=== PATIENT | female | born 1985 | race Caucasian/White ===

== ENCOUNTER → 2016-12-27 | Outpatient (CLI) | payer BC, OTHER | LOC: RAD 17:42 | PROVIDERS: ATTEND Family Medicine | DX: E04.1 Nontoxic single thyroid nodule (principal) | CPT/HCPCS: 76536 ==

== ENCOUNTER → 2017-02-06 | Outpatient (CLI) | payer BC ==
[2017-02-07 07:18] LABS: THYROGLOBULIN AB <1.0 IU/mL (0.0-0.9); THYROID PEROXIDASE (TPO) AB 11 IU/mL (0-34)
== END ==
LOC: OD 08:14
PROVIDERS: ATTEND Physician Assistant Surgical
DX: E04.2 Nontoxic multinodular goiter (principal)
CPT/HCPCS: 36415; 86376; 86800

== ENCOUNTER 2017-06-26 17:26 | Emergency (ER) | payer SELFPAY ==
[2017-06-26 17:48] VITALS: BP 121/82
--- NOTE | 2017-06-26 18:55 | ER Document Report ---
HPI - HPI Patient complains to provider of: Sore throat Onset: Yesterday Onset/Duration: Gradual Quality of pain: Achy Severity: Moderate Pain Level: 4 Context: Patient complains of sore throat since yesterday. States she has a history of tonsillitis. No known fever, but has felt achy and had chills. Denies nasal congestion or cough. Associated Symptoms: Chills, Sore throat Exacerbated by: Denies Relieved by: Denies Similar symptoms previously: Yes Recently seen / treated by doctor: No - ROS ROS below otherwise negative: Yes Systems Reviewed and Negative: Yes All other systems reviewed and negative - CONSTITUTIONAL Constitutional: REPORTS: Chills - EENT EENT: REPORTS: Sore Throat. DENIES: Congestion - NEURO Neurology: DENIES: Headache - CARDIOVASCULAR Cardiovascular: DENIES: Chest pain - RESPIRATORY Respiratory: DENIES: Trouble Breathing - GASTROINTESTINAL Gastrointestinal: DENIES: Abdominal Pain - REPRODUCTIVE Reproductive: DENIES: : - MUSCULOSKELETAL Musculoskeletal: DENIES: Extremity pain - DERM Skin Color: Normal Skin Problems: None Past Medical History - General Information source: Patient - Social History Smoking Status: Current Every Day Smoker Chew tobacco use (# tins/day): No Frequency of alcohol use: None Drug Abuse: None Lives with: Family Family History: Reviewed & Not Pertinent Psychiatric Medical History: Reports: Hx Anxiety Past Surgical History: Reports: Hx Oral Surgery - Immunizations Hx Diphtheria, Pertussis, Tetanus Vaccination: Yes Vertical Provider Document - CONSTITUTIONAL Agree With Documented VS: Yes Exam Limitations: No Limitations General Appearance: WD/WN, No Apparent Distress - INFECTION CONTROL TRAVEL OUTSIDE OF THE [place] IN LAST 30 DAYS: No - HEENT HEENT: Atraumatic, Normocephalic, Pharyngeal Erythema - NECK Neck: Lymphadenopathy-Left, Lymphadenopathy-Right - RESPIRATORY Respiratory: Breath Sounds Normal, No Respiratory Distress O2 Sat by Pulse Oximetry: 100 - CARDIOVASCULAR Cardiovascular: Regular Rate, Regular Rhythm - GI/ABDOMEN Gastrointestinal: Abdomen Soft - MUSCULOSKELETAL/EXTREMETIES Musculoskeletal/Extremeties: MAEW - NEURO Level of Consciousness: Awake, Alert, Appropriate - DERM Integumentary: Warm, Dry, No Rash Course - Vital Signs Vital signs: Temp Pulse Resp BP Pulse Ox 98.7 F 83 16 121/82 100 06/26/17 17:47 06/26/17 17:47 06/26/17 17:47 06/26/17 17:47 06/26/17 17:47 Discharge - Discharge Clinical Impression: Tonsillitis Condition: Good Disposition: HOME, SELF-CARE Additional Instructions: Finish all antibiotics as prescribed Tylenol or Motrin as needed for sore throat and/or fever Salt water gargles or throat lozenges Push fluids Follow-up with primary care physician if not better in 3-4 days, earlier if worsens Return as needed Prescriptions: Penicillin V Potassium [Penicillin Vk 500 mg Tablet] 500 mg PO BID #20 tablet Forms: Return to Work
== END 2017-06-26 19:05 | disposition home or self-care (01) ==
LOC: ER 17:26
DX: J03.90 Acute tonsillitis, unspecified (principal); F17.200 Nicotine dependence, unspecified, uncomplicated
CPT/HCPCS: 99282

== ENCOUNTER → 2018-10-07 | Outpatient (CLI) | payer OTHER ==
--- NOTE | 2018-10-07 11:39 | RADIOLOGY REPORT (SQ) ---
EXAM DESCRIPTION: U/S THYROID/SFT TISS HD NECK COMPLETED DATE/TIME: 10/07/2018 11:17 am REASON FOR STUDY: THYROID NODULE E04.1 NONTOXIC SINGLE THYROID NODULE COMPARISON: 12/27/2016 TECHNIQUE: Dynamic and static fonseca-scale images acquired of the thyroid gland. Selected additional c olor/power Doppler images recorded. All images stored to PACS. LIMITATIONS: None. FINDINGS: RIGHT LOBE: The right lobe of the thyroid gland measures 5 x 1.5 x 1.8 cm, normal size. Homogeneous echotexture. Two well-defined solid hypoechoic nodules are identified. The larger nodul e in the superior pole represents a new finding and measures 0.7 x 0.7 x 0.5 cm. The second smaller nodule in the lower pole is stable in appearance and measures 0.5 x 0.4 x 0.3 cm. LEFT LOBE: The left lobe of the thyroid gland measures 5.0 x 2.1 x 1.5 cm, normal size. Homogeneous echotexture. A hypoechoic solid nodule in the upper pole measures 0.6 x 0.6 x 0.5 cm. On the prior examination, it measured 0.5 x 0.4 x 0.3 cm. There has been a minimal increase in size since the sameer or study. ISTHMUS: The isthmus measures 8.7 mm, prominent in size. Homogeneous echotexture. Homogeneous echot exture. No cystic or solid masses. OTHER: No other significant finding. IMPRESSION: 1. Small hypoechoic nodules within both lobes of the thyroid gland as above. The large r nodule in the right lobe represents a new finding since the prior study dated 12/27/2016. TECHNICAL DOCUMENTATION: JOB ID: [id number] [employer]- All Rights Reserved Reading location - IP/workstation name: [email or web address]
== END ==
LOC: RAD 10:41
PROVIDERS: ATTEND Physician Assistant
DX: E04.1 Nontoxic single thyroid nodule (principal)
CPT/HCPCS: 76536

== ENCOUNTER → 2018-11-18 | Outpatient (CLI) | payer OTHER ==
[2018-11-19 08:40] LABS: THYROID PEROXIDASE (TPO) AB 9 IU/mL (0-34)
[2018-11-19 11:06] LABS: THYROGLOBULIN AB SO <1.0 IU/mL (0.0-0.9)
== END ==
LOC: LAB 12:04
PROVIDERS: ATTEND Surgery
DX: E04.2 Nontoxic multinodular goiter (principal)
CPT/HCPCS: 36415; 84443; 86376

== ENCOUNTER 2019-11-26 09:24 | Emergency (ER) | payer OTHER ==
--- NOTE | 2019-11-26 09:41 | ER Document Report ---
ED Medical Screen (RME) - General Chief Complaint: Shortness Of Breath Stated Complaint: SHORT OF BREATH Time Seen by Provider: 11/26/19 09:31 Primary Care Provider: ZAYRA GILLILAND MD [Primary Care Provider] - Follow up as needed Mode of Arrival: Ambulatory Information source: Patient Notes: 34-year-old female presents emergency department with complaints of chest p ressure since yesterday. Feels like she cannot get a deep breath. Denies chest pain. Denies fever cough vomiting diarrhea. Patient does have a history of thyroid cyst which she receives evaluation by ultrasound by Dr. Aguero but she is not taking any medications. Patient recently quit smoking 1 month ago. Denies history of cardiac disease. Respiratory rate even unlabored no retractions. I have greeted and performed a rapid initial assessment of this patient. A comprehensive ED assessment and evaluation of the patient, analysis of test results and completion of the medical decision making process will be conducted by additional ED providers. TRAVEL OUTSIDE OF THE [place] IN LAST 30 DAYS: No - Related Data Allergies/Adverse Reactions: No Known Allergies Allergy (Verified 11/26/19 09:26) Past Medical History Renal/ Medical History: Denies: Hx Peritoneal Dialysis Psychiatric Medical History: Reports: Hx Anxiety Past Surgical History: Reports: Hx Oral Surgery - Immunizations Hx Diphtheria, Pertussis, Tetanus Vaccination: Yes Doctor's Discharge - Discharge Referrals: ZAYRA GILLILAND MD [Primary Care Provider] - Follow up as needed
--- NOTE | 2019-11-26 10:07 | RADIOLOGY REPORT (SQ) ---
EXAM DESCRIPTION: CHEST 2 VIEWS COMPLETED DATE/TIME: 11/26/2019 9:54 am REASON FOR STUDY: chest pressure COMPARISON: 05/09/2016 EXAM PARAMETERS: NUMBER OF VIEWS: two views TECHNIQUE: Digital Frontal and Lateral radiographic views of the chest acquired. RADIATION DOSE: NA LIMITATIONS: none FINDINGS: LUNGS AND PLEURA: No opacities, masses or pneumothorax. No pleural effusion. MEDIASTINUM AND HILAR STRUCTURES: No masses or contour abnormalities. HEART AND VASCULAR STRUCTURES: Heart normal size. No evidence for failure. BONES: No acute findings. HARDWARE: None in the chest. OTHER: No other significant finding. IMPRESSION: NO ACUTE RADIOGRAPHIC FINDING IN THE CHEST. TECHNICAL DOCUMENTATION: JOB ID: [id number] 2010 [employer]- All Rights Reserved Reading location - IP/workstation name: [email or web address]
[2019-11-26 10:09] LABS: ABSOLUTE EOSINOPHILS # (AUTO) 0.1 10^3/uL (0.0-0.6); ABSOLUTE LYMPHOCYTES (AUTO) 2.3 10^3/uL (0.5-4.7); ABSOLUTE MONOCYTES (AUTO) 0.6 10^3/uL (0.1-1.4); ABSOLUTE NEUT (AUTO) 3.8 10^3/uL (1.7-8.2); BASOPHILS % (AUTO) 0.7 % (0-2); HEMATOCRIT 38.3 % (36.0-47.0); HEMOGLOBIN 13.4 g/dL (12.0-15.5); LYMPHOCYTES % (AUTO) 33.7 % (13-45); MEAN CORPUSCULAR HEMOGLOBIN 29.8 pg (27.0-33.4); MEAN CORPUSCULAR HGB CONC 34.9 g/dL (32.0-36.0); MEAN CORPUSCULAR VOLUME 86 fl (80-97); PLATELET COUNT 321 10^3/uL (150-450); RED BLOOD COUNT 4.48 10^6/uL (3.72-5.28); RED CELL DISTRIBUTION WIDTH 13.1 % (11.5-14.0); SEGMENTED NEUTROPHILS % (AUTO) 55.6 % (42-78); TOTAL CELLS COUNTED % (AUTO) 100 %; WHITE BLOOD COUNT 6.9 10^3/uL (4.0-10.5)
[2019-11-26 10:34] LABS: ALBUMIN 4.4 g/dL (3.5-5.0); ALKALINE PHOSPHATASE 44 U/L (38-126); ANION GAP 7 (5-19); ASPARTATE AMINO TRANSFERASE 29 U/L (14-36); BILIRUBIN,TOTAL 0.4 mg/dL (0.2-1.3); BLOOD UREA NITROGEN 11 mg/dL (7-20); CALCIUM 9.4 mg/dL (8.4-10.2); CARBON DIOXIDE 27 mmol/L (22-30); CHLORIDE 105 mmol/L (98-107); GLUCOSE 92 mg/dL (75-110); POTASSIUM 4.3 mmol/L (3.6-5.0); TOTAL PROTEIN 7.2 g/dL (6.3-8.2)
--- NOTE | 2019-11-26 10:59 | ER Document Report ---
ED General - General Chief Complaint: Chest Tightness Stated Complaint: SHORT OF BREATH Time Seen by Provider: 11/26/19 09:31 Primary Care Provider: ZAYRA GILLILAND MD [Primary Care Provider] - Follow up as needed Mode of Arrival: Ambulatory TRAVEL OUTSIDE OF THE [place] IN LAST 30 DAYS: No - HPI Notes: Patient is a 34-year-old female presents emergency department for evaluation. Yesterday she started having stabbing pains in her left episcopal area interm ittently. Following that she felt like she was having trouble taking a deep breath. She states her chest felt somewhat tight. The symptoms were intermittent and throughout the day. They happened again today, so she presents to the ER for further evaluation. She is had no fevers or chills. No sore throat. No nausea or vomiting. Normal urination, normal bowel movements. She denies any difficulty seeing, speaking, swallowing. She currently states that her breathing issue has improved remarkably, did so shortly after her arrival. - Related Data Allergies/Adverse Reactions: No Known Allergies Allergy (Verified 11/26/19 09:26) Home Medications: OCPs Past Medical History - General Information source: Patient - Social History Smoking Status: Former Smoker Chew tobacco use (# tins/day): No Frequency of alcohol use: None Drug Abuse: None Family History: Reviewed & Not Pertinent Patient has suicidal ideation: No Patient has homicidal ideation: No Renal/ Medical History: Denies: Hx Peritoneal Dialysis Psychiatric Medical History: Reports: Hx Anxiety Past Surgical History: Reports: Hx Oral Surgery - Immunizations Hx Diphtheria, Pertussis, Tetanus Vaccination: Yes Review of Systems - Review of Systems Cardiovascular: See HPI Neurological/Psychological: See HPI -: Yes All other systems reviewed and negative Physical Exam - Vital signs Vitals: Temp Pulse Resp BP Pulse Ox 98.6 F 67 16 123/79 100 11/26/19 09:30 11/26/19 09:30 11/26/19 09:30 11/26/19 09:30 11/26/19 09:30 - Notes Notes: Vital signs reviewed, please refer to chart. Head is normocephalic, atraumatic. Pupils equal round, reactive to light. Neck is supple without meningismus. Heart is regular rate and rhythm. Lungs are clear to auscultation bilaterally. Abdomen is soft, nontender, normoactive bowel sounds throughout. Extremities without cyanosis, clubbing. Posterior calves are nontender. Peripheral pulses are equal. Skin is warm and dry. Patient is awake, alert, oriented x3. Cranial nerves II - XII are grossly intact without focal neurological deficits. Strength is plus 5 out of 5 bilateral upper and lower extremities. Sensation is intact. Reflexes symmetrical. Intact [id number], rapid alternating movements, [id number]. Course - Re-evaluation Re-evalutation: 11/26/19 10:58 Patient presents to the emergency department for evaluation. Laboratory investigations were ordered as through triage. Patient has complaints that seem most consistent with anxiety. We discussed this. She states she did have some anxiety issues in the past, but had not in some time. She denies any precipitating events. Awaiting the remainder of her lab work. Otherwise, the patient is stable. She has no risk factors for PE. Her heart rate is in the 60s. We will continue to monitor. 11/26/19 11:33 Laboratory investigations are entirely unremarkable. I strongly suspect anxiety is the etiology of this patient's symptoms. I encouraged her to follow-up with Dr. Gilliland to discuss this further. Otherwise she is vitally stable, lab work is unremarkable, and she is discharged with instructions to return with worsening. - Vital Signs Vital signs: Temp Pulse Resp BP Pulse Ox 98.6 F 67 16 123/79 100 11/26/19 09:30 11/26/19 09:30 11/26/19 09:30 11/26/19 09:30 11/26/19 09:30 - Laboratory Result Diagrams: 11/26/19 09:49 11/26/19 09:49 - Diagnostic Test Radiology reviewed: Reports reviewed Radiology results interpreted by me: 11/26/19 10:59 Chest X-Ray 11/26/19 09:38 IMPRESSION: NO ACUTE RADIOGRAPHIC FINDING IN THE CHEST. - EKG Interpretation by Me Additional EKG results interpreted by me: 11/26/19 10:59 Sinus mechanism with a rate of 64 bpm. Normal axis and intervals. No acute ST changes concerning for ischemia or infarction. Discharge - Discharge Clinical Impression: Feeling of chest tightness, Anxiety Condition: Stable Disposition: HOME, SELF-CARE Instructions: Anxiety ([facility]), Chest Pain of Unclear Cause ([facility]) Additional Instructions: Your lab work, thyroid studies, EKG, chest x-ray were all unremarkable for any acute findings today. Please follow-up with Dr. Gilliland this week. Return to the emergency department with worsening or new concerning symptoms of any sort. Referrals: ZAYRA GILLILAND MD [Primary Care Provider] - Follow up as needed
[2019-11-26 11:53] VITALS: BP 127/90
--- NOTE | 2019-11-26 17:23 | EKG REPORT ---
SEVERITY:- NORMAL ECG - SINUS RHYTHM : Confirmed by: Franklin Conner 26-Nov-2019 17:22:47
== END 2019-11-26 11:53 | disposition home or self-care (01) ==
LOC: ER 09:24
DX: R07.9 Chest pain, unspecified (principal); F41.9 Anxiety disorder, unspecified; R06.02 Shortness of breath
CPT/HCPCS: 36415; 71046; 80053; 84443; 84703; 85025; 93005; 93010; 99285

== ENCOUNTER 2020-01-07 16:46 | Emergency (ER) | payer OTHER ==
[2020-01-07] MEDS ORDERED: ONDANSETRON HCL INJ/PF 4 MG/2 ML SDV IV ONE (17:13)
[2020-01-07] MEDS ORDERED: NORMAL SALINE 1000 ML 1,000 ML IV ONE (17:13)
[2020-01-07] MEDS ORDERED: KETOROLAC TROMETHAMINE INJ/PF 30 MG/1 ML SDV IV ONE (17:13)
--- NOTE | 2020-01-07 17:15 | ER Document Report ---
ED Medical Screen (RME) - General Chief Complaint: Epigastric Pain Stated Complaint: ABDOMINAL PAIN Time Seen by Provider: 01/07/20 17:10 Primary Care Provider: ZAYRA GILLILAND MD [Primary Care Provider] - Follow up as needed Mode of Arrival: Ambulatory Information source: Patient Notes: 34-year-old female presented to ED for complaint of right upper quadrant abdomin al pain since Sunday. She states she is has a little nausea whenever the pain is really bad. She states she does have a past medical history of anxiety a fractured finger and a split tongue. She states her split tongue was sewn when she was 3 years old. Patient is alert oriented respirations regular nonlabored speaking in full sentences. She states she does not smoke drink or use any illicit drugs. I have greeted and performed a rapid initial assessment of this patient. A comprehensive ED assessment and evaluation of the patient, analysis of test results and completion of medical decision making process will be conducted by an additional ED providers. TRAVEL OUTSIDE OF THE [place] IN LAST 30 DAYS: No - Related Data Allergies/Adverse Reactions: No Known Allergies Allergy (Verified 11/26/19 09:26) Home Medications: denies Past Medical History - Social History Chew tobacco use (# tins/day): No Frequency of alcohol use: None Drug Abuse: None Renal/ Medical History: Denies: Hx Peritoneal Dialysis Psychiatric Medical History: Reports: Hx Anxiety Past Surgical History: Reports: Hx Oral Surgery - Immunizations Hx Diphtheria, Pertussis, Tetanus Vaccination: Yes Physical Exam - Vital signs Vitals: Temp Pulse Resp BP Pulse Ox 98.0 F 52 L 18 162/91 H 99 01/07/20 16:54 01/07/20 16:54 01/07/20 16:54 01/07/20 16:54 01/07/20 16:54 Course - Vital Signs Vital signs: Temp Pulse Resp BP Pulse Ox 98.0 F 52 L 18 162/91 H 99 01/07/20 16:59 01/07/20 16:54 01/07/20 16:54 01/07/20 16:54 01/07/20 16:54 Doctor's Discharge - Discharge Referrals: ZAYRA GILLILAND MD [Primary Care Provider] - Follow up as needed
[2020-01-07 17:43] LABS: ABSOLUTE BASOPHILS # (AUTO) 0.1 10^3/uL (0.0-0.2); ABSOLUTE EOSINOPHILS # (AUTO) 0.1 10^3/uL (0.0-0.6); ABSOLUTE LYMPHOCYTES (AUTO) 3.2 10^3/uL (0.5-4.7); ABSOLUTE MONOCYTES (AUTO) 0.9 10^3/uL (0.1-1.4); ABSOLUTE NEUT (AUTO) 5.3 10^3/uL (1.7-8.2); BASOPHILS % (AUTO) 0.9 % (0-2); HEMATOCRIT 42.1 % (36.0-47.0); HEMOGLOBIN 14.6 g/dL (12.0-15.5); LYMPHOCYTES % (AUTO) 33.5 % (13-45); MEAN CORPUSCULAR HEMOGLOBIN 29.6 pg (27.0-33.4); MEAN CORPUSCULAR HGB CONC 34.6 g/dL (32.0-36.0); MEAN CORPUSCULAR VOLUME 86 fl (80-97); MONOCYTES % (AUTO) 9.5 % (3-13); PLATELET COUNT 417 10^3/uL (150-450); RED BLOOD COUNT 4.92 10^6/uL (3.72-5.28); SEGMENTED NEUTROPHILS % (AUTO) 55.1 % (42-78); TOTAL CELLS COUNTED % (AUTO) 100 %; WHITE BLOOD COUNT 9.7 10^3/uL (4.0-10.5)
[2020-01-07 17:53] LABS: APPEARANCE,URINE CLEAR; BILIRUBIN,URINE NEGATIVE (NEGATIVE); COLOR,URINE YELLOW; GLUCOSE, URINE NEGATIVE (NEGATIVE); KETONES,URINE NEGATIVE (NEGATIVE); PROTEIN,URINE NEGATIVE (NEGATIVE); URINE SPECIFIC GRAVITY 1.012; UROBILINOGEN,URINE NEGATIVE mg/dL (<2.0)
[2020-01-07 18:07] LABS: ALBUMIN 4.8 g/dL (3.5-5.0); ALKALINE PHOSPHATASE 52 U/L (38-126); ANION GAP 10 (5-19); ASPARTATE AMINO TRANSFERASE 29 U/L (14-36); BILIRUBIN,TOTAL 0.4 mg/dL (0.2-1.3); BLOOD UREA NITROGEN 13 mg/dL (7-20); CALCIUM 9.9 mg/dL (8.4-10.2); CARBON DIOXIDE 27 mmol/L (22-30); CHLORIDE 102 mmol/L (98-107); GLUCOSE 107 mg/dL (75-110); POTASSIUM 4.6 mmol/L (3.6-5.0); TOTAL PROTEIN 8.2 g/dL (6.3-8.2)
--- NOTE | 2020-01-07 18:12 | ER Document Report ---
ED General - General Chief Complaint: Epigastric Pain Stated Complaint: ABDOMINAL PAIN Time Seen by Provider: 01/07/20 17:10 Primary Care Provider: ZAYRA GILLILAND MD [Primary Care Provider] - Follow up as needed Mode of Arrival: Ambulatory Information source: Patient Notes: Gato de anda 34-year-old female presented to ED for complaint of right upper quadrant abdominal pain since Sunday. She states she is has a little nausea whenever the pain is really bad. She states she does have a past medical history of anxiety a fractured finger and a split tongue. She states her split tongue was sewn when she was 3 years old. Patient is alert oriented respirations regular nonlabored speaking in full sentences. She states she does not smoke drink or use any illicit drugs. my note 34 year old female with 4 days of belly pain. Patient reports she has never had this before and denies any abuse or trauma or history of pancreatitis or gallbladder disease. No other family member has similar symptoms. Patient denies any diarrhea or constipation. Patient reports she can feel her abdomen churning. She admits to nausea when pain is quite severe. Patient denies any sore throat nuchal rigidity cephalgia chest pain back pain extremity pain. She denies any fatty food intolerance. She denies any fever chills dysuria. TRAVEL OUTSIDE OF THE [place] IN LAST 30 DAYS: No - HPI Onset: Other - x 4 days Onset/Duration: Persistent, Worse Quality of pain: Achy Severity: Moderate Pain Level: 4 - 8/10 pain Associated symptoms: None Exacerbated by: Movement, Walking, Food Relieved by: Denies Similar symptoms previously: No Recently seen / treated by doctor: No - Related Data Allergies/Adverse Reactions: No Known Allergies Allergy (Verified 01/07/20 18:54) Home Medications: denies Past Medical History - General Information source: Patient - Social History Smoking Status: Never Smoker Cigarette use (# per day): No Chew tobacco use (# tins/day): No Smoking Education Provided: No Frequency of alcohol use: None Drug Abuse: None 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 [employer] Lives with: Family Family History: Reviewed & Not Pertinent Patient has suicidal ideation: No Patient has homicidal ideation: No Renal/ Medical History: Denies: Hx Peritoneal Dialysis Psychiatric Medical History: Reports: Hx Anxiety Past Surgical History: Reports: Hx Oral Surgery - Immunizations Hx Diphtheria, Pertussis, Tetanus Vaccination: Yes Review of Systems - Review of Systems Constitutional: See HPI, Weakness EENT: No symptoms reported Cardiovascular: No symptoms reported Respiratory: No symptoms reported Gastrointestinal: See HPI, Abdominal pain, Nausea Genitourinary: No symptoms reported Female Genitourinary: No symptoms reported Musculoskeletal: No symptoms reported Skin: No symptoms reported Hematologic/Lymphatic: No symptoms reported Neurological/Psychological: No symptoms reported Physical Exam - Vital signs Vitals: Temp Pulse Resp BP Pulse Ox 98.0 F 52 L 18 162/91 H 99 01/07/20 16:54 01/07/20 16:54 01/07/20 16:54 01/07/20 16:54 01/07/20 16:54 Interpretation: Hypertensive - General General appearance: Appears well In distress: Moderate - HEENT Head: Normocephalic Eyes: Normal Conjunctiva: Normal Cornea: Normal Extraocular movements intact: Yes Eyelashes: Normal Pupils: PERRL Nasal: Normal Mouth/Lips: Normal Mucous membranes: Normal Pharynx: Normal Neck: Normal - Respiratory Respiratory status: No respiratory distress Chest status: Nontender Breath sounds: Normal Chest palpation: Normal - Cardiovascular Rhythm: Regular Heart sounds: Normal auscultation Murmur: No - Abdominal Inspection: Normal Distension: No distension Bowel sounds: Hyperactive Tenderness: Tender - RUQ on p/p Organomegaly: No organomegaly - Genitourinary Bimanuel exam: Other - deferred - Back Back: Normal - Extremities General upper extremity: Normal inspection General lower extremity: Normal inspection - Neurological Neuro grossly intact: Yes Cognition: Normal Orientation: AAOx4 [place] Coma Scale Eye Opening: Spontaneous Jose Alberto Coma Scale Verbal: Oriented Jose Alberto Coma Scale Motor: Obeys Commands [place] Coma Scale Total: 15 Speech: Normal Motor strength normal: LUE, RUE, LLE, RLE Sensory: Normal - Psychological Associated symptoms: Normal affect - Skin Skin Temperature: Warm Skin Moisture: Dry Course - Vital Signs Vital signs: Temp Pulse Resp BP Pulse Ox 98.0 F 52 L 18 162/91 H 99 01/07/20 16:59 01/07/20 16:54 01/07/20 16:54 01/07/20 16:54 01/07/20 16:54 - Laboratory Result Diagrams: 01/07/20 17:33 01/07/20 17:33 Laboratory results interpreted by me: 01/07/20 17:33 Urine Blood LARGE H - Diagnostic Test Radiology reviewed: Reports reviewed Radiology results interpreted by me: 01/07/20 19:37 Radiology reads ultrasound with gallbladder sludge and ducts normal wall 2 mm thick. Liver is 16.5 cm and also patient has right kidney with 7 mm nonobstructing stone plus cysts 01/07/20 20:35 ct reports neg for gb Critical Care Note - Critical Care Note Total time excluding time spent on procedures (mins): 90 Comments: I discussed findings with patient and advised her to follow-up with Dr. David strickland and also PCP or urologist Discharge - Discharge Clinical Impression: Kidney stone on right side, Sludge in gallbladder Abdominal pain Qualifiers: Abdominal location: right upper quadrant Qualified Code(s): R10.11 - Right upper quadrant pain Condition: Good Disposition: HOME, SELF-CARE Instructions: Abdominal Pain ([facility]), Gallbladder Disease ([facility]) Additional Instructions: Follow-up with Dr. Hernandez surgeon if gallbladder issues recur. May have to also follow-up with urologist of choice because of your kidney stones. Off work as directed take medicines as directed encourage fluids Prescriptions: Ursodiol [Actigall 300 mg Capsule] 1 cap PO DAILY #10 cap Dicyclomine HCl [Bentyl 20 mg Tablet] 20 mg PO QID PRN #40 tablet PRN Reason: For Pain Scale 1-2 Forms: Return to Work Referrals: ZAYRA GILLILAND MD [Primary Care Provider] - Follow up as needed
--- NOTE | 2020-01-07 18:37 | RADIOLOGY REPORT (SQ) ---
EXAM DESCRIPTION: U/S ABDOMEN LIMITED W/O DOP IMAGES COMPLETED DATE/TIME: 01/07/2020 6:24 pm REASON FOR STUDY: Upper quadrant abdominal pain COMPARISON: None. TECHNIQUE: Dynamic and static grayscale images acquired of the abdomen and recorded on PACS. Additio nal selected color Doppler and spectral images recorded. LIMITATIONS: None. FINDINGS: PANCREAS: No masses. Visualized pancreatic duct normal caliber. LIVER: The liver measures 16.5 cm in length, within upper limits of normal size. No masses. Echotex ture normal. LIVER VASCULATURE: Normal directional flow of the main portal vein and hepatic veins. GALLBLADDER: Minimal amount of gallbladder sludge. The gallbladder wall measures 2.0 mm, normal wal l thickness. No pericholecystic fluid. ULTRASOUND-DETECTED HICKEY'S SIGN: Negative. INTRAHEPATIC DUCTS AND COMMON DUCT: CBD measures 4.0 mm in diameter, normal. The intrahepatic ducts normal caliber. No filling defects. INFERIOR VENA CAVA: Normal flow. AORTA: No aneurysm. RIGHT KIDNEY: The right kidney measures 12.3 cm, normal size. Normal echogenicity. Nonobstructing 7 mm calculus in the mid pole of the kidney. Multiple cysts are identified. 2 of the largest cysts m easure 1.9 cm 1.1 cm. PERITONEAL AND RIGHT PLEURAL SPACE: No ascites or effusions. OTHER: No other significant findings. IMPRESSION: 1. Minimal amount of gallbladder sludge. No evidence of gallstones. 2. Nonobstructing subcentimeter right renal calculus. 3. Multiple right renal cysts. TECHNICAL DOCUMENTATION: JOB ID: [id number] 2010 [employer]- All Rights Reserved Reading location - IP/workstation name: [email or web address]
--- NOTE | 2020-01-07 19:57 | RADIOLOGY REPORT (SQ) ---
EXAM DESCRIPTION: CT ABD/PELVIS WITH IV ONLY IMAGES COMPLETED DATE/TIME: 01/07/2020 7:32 pm REASON FOR STUDY: abd pain COMPARISON: None. TECHNIQUE: CT scan of the abdomen and pelvis performed using helical scanning technique with dynamic intravenous contrast injection. No oral contrast. Images reviewed with lung, soft tissue, and bone windows. Reconstructed coronal and sagittal MPR images reviewed. Delayed images for evaluation of the urinary system also acquired. All images stored on PACS. All CT scanners at this facility use dose modulation, iterative reconstruction, and/or weight based d osing when appropriate to reduce radiation dose to as low as reasonably achievable (ALARA). [facility]: Dose Right [facility]: CareDose [facility]: Dose Right [facility]: Teradose 4D [facility]: Medikidz CONTRAST TYPE AND DOSE: contrast/concentration: Isovue 350.00 mg/ml; Total Contrast Delivered: 100.0 ml; Total Saline Delivered: 59.0 ml RENAL FUNCTION: None required. The patient is less than 50 years old. RADIATION DOSE: CT Rad equipment meets quality standard of care and radiation dose reduction techniq ues were employed. CTDIvol: 12.9 - 17.0 mGy. DLP: 1733 mGy-cm.. LIMITATIONS: None. FINDINGS: LOWER CHEST: No significant findings. No nodules or infiltrates. LIVER: Normal size. No masses. No dilated ducts. The hepatic and portal veins are patent. SPLEEN: Small splenule, normal anatomic variant. Normal size. No focal lesions. PANCREAS: No masses. No significant calcifications. No adjacent inflammation or peripancreatic fluid collections. Pancreatic duct not dilated. GALLBLADDER: No identified stones by CT criteria. No inflammatory changes to suggest cholecystitis. ADRENAL GLANDS: No significant masses or asymmetry. RIGHT KIDNEY AND URETER: Multiple renal cysts and too small to characterize hypoattenuated lesions. No significant calcifications. No hydronephrosis or hydroureter. LEFT KIDNEY AND URETER: Multiple small renal cysts and too small to characterize hypoattenuated lesi ons. No significant calcifications. No hydronephrosis or hydroureter. AORTA AND VESSELS: No aneurysm. No dissection. Renal arteries, SMA, celiac without stenosis. RETROPERITONEUM: No retroperitoneal adenopathy, hemorrhage or masses. BOWEL AND PERITONEAL CAVITY: No masses or inflammatory changes. No free fluid or peritoneal masses. APPENDIX: Normal. PELVIS: Bilateral very small hypoattenuated structures in the adnexal regions may represent bilatera l ovarian follicles. No free fluid. The urinary bladder is incompletely distended. ABDOMINAL WALL: No masses. No hernias. BONES: No significant or acute findings. OTHER: No other significant finding. IMPRESSION: 1. NO ACUTE FINDING IN THE ABDOMEN OR PELVIS. 2. Multiple bilateral renal cysts and too small to characterize hypoattenuated renal lesions. TECHNICAL DOCUMENTATION: JOB ID: [id number] Quality ID # [id number]: Final reports with documentation of one or more dose reduction techniques (e.g., Au tomated exposure control, adjustment of the mA and/or kV according to patient size, use of iterative reconstruction technique) 2010 [employer]- All Rights Reserved Reading location - IP/workstation name: [email or web address]
[2020-01-07] MEDS ORDERED: ONDANSETRON ODT 4 MG TAB (6 TAB/ER DISP) PO PRN (20:37)
[2020-01-07] MEDS ORDERED: HYDROCODONE/ACETAMINOPHEN 5-325 MG (6 TAB/ER DISP) PO PRN (20:37)
[2020-01-07 21:02] VITALS: BP 129/95
== END 2020-01-07 21:06 | disposition home or self-care (01) ==
LOC: ER 16:46
DX: N20.0 Calculus of kidney (principal); Q61.02 Congenital multiple renal cysts; K82.8 Other specified diseases of gallbladder; R10.11 Right upper quadrant pain; R10.811 Right upper quadrant abdominal tenderness; R11.0 Nausea; R53.1 Weakness
CPT/HCPCS: 99285; 96361; 96374; 96375; 36415; 83690; 84703; 85025; 80053; 81001; 76705; 74177; J1885; J2405; J7030